=== PATIENT | female | born 1935 | race Caucasian/White ===

== ENCOUNTER → 2017-10-26 | Outpatient (CLI) | payer MEDICARE ==
[~2017-10-26] MED LIST: ASPI325 PO; ATEN25 PO; ATEN50 PO; ATOR40TA PO; Benadryl 50 mg50 MG PO; CALCAVITDA PO; CONEST.3 PO; CONEST.625 PO; DIPATR PO; ERGO400 PO; FEXPSEER PO; FISH1000 PO; FLAX PO; GLUCHON PO; HYDACE10 PO; IBUP200 PO; LEVFLO500 PO; MELO7.5 PO; MULVITMINF PO; Magnesium250 MG PO; Mobic15 MG PO; OMEP10ER PO; OXYACE5T PO; PANT40 PO; POTA10T PO; Pepcid40 MG PO; Prednisone10 MG PO; Prilosec Otc20 MG PO; RAMI2.5 PO; RAMI5 PO; RXONDA4ODT MM; SELENIUM200 MC1 PO; SERT25 PO; SIMV40 PO; Zofran8 MG PO
== END ==
LOC: LAB EV 12:19
DX: N39.0 Urinary tract infection, site not specified (principal)
CPT/HCPCS: 87077; 87086; 87186

== ENCOUNTER 2018-09-27 11:20 | Inpatient (IN) | payer MEDICARE ==
[~2018-09-27] VITALS: Ht 160 cm; Wt 57.8 kg
[~2018-09-27 11:20] MED LIST changes: +FISH OIL + D31 EACH PO
[2018-09-27 12:09] LABS: BASOPHILS ABSOLUTE AUTO 0.01 K/mm3 (0.00-0.23); BASOPHILS PERCENT AUTO 0 % (0-2); EOSINOPHILS PERCENT AUTO 0 % (0-6); Hematocrit 43.8 % (33.0-51.0); Hemoglobin 14.3 g/dL (11.5-16.0); IMMATURE GRAN ABSOLUTE AUTO 0.01 K/mm3 (0.00-0.10); IMMATURE GRAN PERCENT AUTO 0 % (0-1); LYMPHOCYTES ABSOLUTE AUTO 1.11 K/mm3 (0.84-5.20); LYMPHOCYTES PERCENT AUTO 21 % (21-46); MONOCYTES ABSOLUTE AUTO 0.81 K/mm3 (0.16-1.47); MONOCYTES PERCENT AUTO 15 % (4-13); Mean Corpuscular HGB 32.9 pg (26.0-34.0); Mean Corpuscular HGB Conc 32.6 g/dL (31.5-36.5); Mean Corpuscular Volume 101 fL (80-100); Mean Platelet Volume 11.3 fL (9.1-12.4); NEUTROPHILS ABSOLUTE AUTO 3.42 K/mm3 (1.96-9.15); NEUTROPHILS PERCENT AUTO 64 % (41-73); Platelet Count 210 K/mm3 (150-400); RDW Coefficient Variation 12.7 % (11.7-14.2); RDW Standard Deviation 47.3 fL (35.1-46.3); Red Blood Cell Count 4.34 M/mm3 (3.80-5.20); White Blood Cell Count 5.36 K/mm3 (4.00-11.30)
[2018-09-27 12:32] LABS: Albumin, Blood 3.4 g/dL (3.4-5.0); Bilirubin, Total 0.6 mg/dL (0.1-1.0); Bun/Creatinine Ratio 16.8 (12.0-20.0); Calcium, Blood 7.5 mg/dL (8.5-10.1); Creatinine, Blood 3.09 mg/dL (0.40-1.00); Globulin, Blood 3.5 g/dL (2.2-4.0); Potassium, Blood 3.7 mmol/L (3.5-5.5); Total Protein, Blood 6.9 g/dL (6.4-8.2)
[2018-09-27 14:09] LABS: Source, Urine Clean Catch
[2018-09-27 14:16] LABS: Bilirubin, Urine Neg (Neg); Glucose Qualitative, Urine Neg (Neg); Leukocyte Esterase, Urine 3+ (Neg); Nitrite, Urine Pos (Neg); Urobilinogen, Urine NORM (Normal)
[2018-09-27 14:46] LABS: Appearance, Urine Clear (Clear); Blood, Urine 5+ (Neg); Color, Urine Yellow (P-Yellow); Ketones, Urine Neg (Neg); Protein, Urine 3+ (Neg)
[2018-09-27 14:55] LABS: Bacteria Mod /hpf; Red Blood Cells, Urine 0-2 /hpf (0-2); Squamous Epithelial Cells Few /hpf (Few); White Blood Cells, Urine 0-2 /hpf (0-5)
--- NOTE | 2018-09-27 19:11 | NUR ---
SHIFT SUMMARY: PATIENT ADMIT FROM ED THIS SHIFT. PT A&O; CALM AND COOPERATIVE WITH CARE. NO C/O PAIN/NAUSEA SINCE ARRIVAL ON MEDICAL FLOOR. FULL ADEMIT COMPLETED. FLUID REHYDRATION CONTINUING. REPORT GIVEN TO ONCOMING RN.
[2018-09-27 23:54] LABS: Bilirubin, Urine Neg (Neg); Blood, Urine 5+ (Neg); Glucose Qualitative, Urine Neg (Neg); Ketones, Urine 1+ (Neg); Leukocyte Esterase, Urine 3+ (Neg); Nitrite, Urine Pos (Neg); Protein, Urine 2+ (Neg); Urobilinogen, Urine NORM (Normal)
[2018-09-28 00:05] LABS: Appearance, Urine Cloudy (Clear); Color, Urine Pale Yellow (P-Yellow)
[2018-09-28 00:06] LABS: Amorphous Light (0-Heavy); Bacteria Many /hpf; Squamous Epithelial Cells Few /hpf (Few)
--- NOTE | 2018-09-28 04:25 | NUR ---
SHIFT SUMMARY PT RESTING QUIETLY, WATCHING TV, DURING BS REPORT. IVF'S INFUSING. ADMITTED FOR KATYA, DEHYDRATION AND HYPOTENSION. PT TO ER WITH C/O N/V/D SINCE TUESDAY, WITH REPORT OF 8 LB WT LOSS. DENIED NEEDS AT THAT TIME, BUT LATER [facility] PT FOUND TO HAVE DIARRHEA REPORTED. C-DIFF CX ORDERED PER PROTOCOL AND SENT. LAB RESULT RETURNED NEG FOR C-DIFF. PT HAS RESTED QUIETLY FOR THE MOST PART, WAKING TO GO TO [facility] SEVERAL TIMES WITH DIARRHEA. PT SEEMS WEAK AND DECONDITIONED, BUT PLEASANT AND CO-OP WITH CARE. CALL LT IN REACH. ABLE TO MAKE NEEDS KNOWN.
[2018-09-28 06:30] LABS: Albumin, Blood 2.5 g/dL (3.4-5.0); Anion Gap 8 mmol/L (6-16); Blood Urea Nitrogen 29 mg/dL (8-24); Bun/Creatinine Ratio 22.5 (12.0-20.0); CO2, Blood 22 mmol/L (21-32); Calcium, Blood 7.1 mg/dL (8.5-10.1); Chloride, Blood 113 mmol/L (98-108); Creatinine, Blood 1.29 mg/dL (0.40-1.00); Glomerular Filtration Rate 42 (60-); Glucose, Blood 76 mg/dL (70-99); Phosphorus, Blood 2.1 mg/dL (2.5-4.9); Potassium, Blood 3.5 mmol/L (3.5-5.5); Sodium, Blood 143 mmol/L (136-145)
--- NOTE | 2018-09-28 10:27 | NUR ---
Spiritual care visit conducted. I entered patient's room and found her lying in bed on her side. I introduced myself and gave the purpose for my visit. Patient invited me to sit down. Patient was open and kind and talked freely about her loss of loved ones and about her family. Patient was admittedly discouraged by the fact that her sympoms were kidney related rather than an illness. I listened empathically, provided companionship, emotional support and prayer. Patient verbalized appreciation. Patient displayed evidence of restored mary, catharsis and stabilization.
--- NOTE | 2018-09-28 16:32 | NUR ---
Mrs. Vazquez appears frail and explained to me why she is hre in great detail. She states she is not used to being ill, but is hopeful she will begin to feel better soon. She tells me she has the strong support of friends and neighbors and expressed no concerns. We prayed together for healing. I will remain available.
--- NOTE | 2018-09-28 18:44 | NUR ---
NO ACUTE CHANGES NOTED THIS SHIFT. PT CONTINUES TO EXPERIENCE FREQUENT DIARRHEA. NO N/V. STOOL SPECIMEN SENT TO LAB, RESULTS PENDING. NO C/O OF PAIN TODAY. WILL CONTINUE TO MONITOR AND REPORT TO ONCOMING RN.
[2018-09-29 04:26] LABS: BASOPHILS ABSOLUTE AUTO 0.01 K/mm3 (0.00-0.23); BASOPHILS PERCENT AUTO 0 % (0-2); EOSINOPHILS ABSOLUTE AUTO 0.04 K/mm3 (0.00-0.68); EOSINOPHILS PERCENT AUTO 1 % (0-6); Hematocrit 33.8 % (33.0-51.0); Hemoglobin 10.8 g/dL (11.5-16.0); IMMATURE GRAN ABSOLUTE AUTO 0.01 K/mm3 (0.00-0.10); IMMATURE GRAN PERCENT AUTO 0 % (0-1); LYMPHOCYTES ABSOLUTE AUTO 0.95 K/mm3 (0.84-5.20); LYMPHOCYTES PERCENT AUTO 31 % (21-46); MONOCYTES ABSOLUTE AUTO 0.48 K/mm3 (0.16-1.47); MONOCYTES PERCENT AUTO 16 % (4-13); Mean Corpuscular Volume 103 fL (80-100); Mean Platelet Volume 10.2 fL (9.1-12.4); NEUTROPHILS ABSOLUTE AUTO 1.55 K/mm3 (1.96-9.15); NEUTROPHILS PERCENT AUTO 51 % (41-73); Platelet Count 157 K/mm3 (150-400); RDW Coefficient Variation 12.7 % (11.7-14.2); RDW Standard Deviation 48.2 fL (35.1-46.3); Red Blood Cell Count 3.27 M/mm3 (3.80-5.20); White Blood Cell Count 3.04 K/mm3 (4.00-11.30)
[2018-09-29 04:44] LABS: Albumin, Blood 2.4 g/dL (3.4-5.0); Anion Gap 4 mmol/L (6-16); Blood Urea Nitrogen 8 mg/dL (8-24); Bun/Creatinine Ratio 10.9 (12.0-20.0); CO2, Blood 26 mmol/L (21-32); Calcium, Blood 7.2 mg/dL (8.5-10.1); Chloride, Blood 115 mmol/L (98-108); Creatinine, Blood 0.74 mg/dL (0.40-1.00); Glomerular Filtration Rate >60 (60-); Glucose, Blood 99 mg/dL (70-99); Phosphorus, Blood 1.4 mg/dL (2.5-4.9); Potassium, Blood 3.5 mmol/L (3.5-5.5); Sodium, Blood 145 mmol/L (136-145)
--- NOTE | 2018-09-29 05:06 | NUR ---
BLOWER FEEDER DYED RAW STOCK SUMMARY NO ACUTE CHANGES THIS SHIFT. PT AAOX4 AND INDEPENDENT TO THE BATHROOM. PT DID NOT EAT MUCH OF HER DINNER BECAUSE SHE SAYS "EVERYTHING I EAT MAKES ME HAVE MORE DIARRHEA". PT DID HAVE ONE BM THIS AM WHICH SHE REPORTS IS MORE FORMED AND NO LONGER LOOSE. CONTINUED ON IV NS AND ABX. VSS, WILL CONTINUE TO MONITOR.
--- NOTE | 2018-09-29 19:40 | NUR ---
SUMMARY- PT A/O INDEPENDANT IN ROOM. HAD ONE SEMI FORMED STOOL THIS AM, AND 2 LOOSE AFTER THAT BEFORE 10AM. NO BM UNTIL 1800 HAD ANOTHER LOOSE STOOL. TOLERATING FOOD AND FLUIDS. HAD A SHOWER THIS PM. STARTED K-PHOS RIDER FOR LOW PHOS. REPORTED TO FELICIANO BURK.
[2018-09-30 05:33] LABS: Albumin, Blood 2.4 g/dL (3.4-5.0); Anion Gap 7 mmol/L (6-16); Blood Urea Nitrogen 4 mg/dL (8-24); Bun/Creatinine Ratio 6.5 (12.0-20.0); CO2, Blood 25 mmol/L (21-32); Calcium, Blood 7.6 mg/dL (8.5-10.1); Chloride, Blood 112 mmol/L (98-108); Creatinine, Blood 0.61 mg/dL (0.40-1.00); Glomerular Filtration Rate >60 (60-); Glucose, Blood 110 mg/dL (70-99); Phosphorus, Blood 2.5 mg/dL (2.5-4.9); Potassium, Blood 3.7 mmol/L (3.5-5.5); Sodium, Blood 144 mmol/L (136-145)
--- NOTE | 2018-09-30 06:25 | NUR ---
SHIFT SUMMARY PT IS AN 83 Y/O WOMAN, ADMITTED FOR KATYA AND DEHYDRATION. SHE IS A&O X 4, AND ABLE TO AMBULATE INDEPENDENTLY. SHE REPORTED MULTIPLE LOOSE BMS DURING THE NIGHT, BUT DENIED ANY NAUSEA OR VOMITING. NO REPORTS OF PAIN OR SHORTNESS OF BREATH. VITAL SIGNS STABLE. NO ACUTE CHANGES IN PT CONDITION NOTED DURING THE NIGHT. WILL CONTINUE TO MONITOR AND TREAT PER EMAR UNTIL HAND OFF TO DAY SHIFT.
[2018-09-30] MEDS ORDERED: ASPI81CH PO (11:47)
[2018-09-30] MEDS ORDERED: CIPR500 PO (11:47)
[2018-09-30] MEDS ORDERED: FAMO20 PO (11:47)
[2018-09-30] MEDS ORDERED: METR500 PO (11:48)
--- NOTE | 2018-09-30 12:45 | NUR ---
DISCHARGE INSTRUCTIONS COMPLETED AND DISCUSSED WITH PT EXPRESSING UNDERSTANDING. SCRIPTS FAXED TO [facility]. COLINDRES CURB VIA W/C.
== END 2018-09-30 12:45 | disposition home or self-care (01) | DRG 682 ==
LOC: ER 11:20 → MEDS 14:06
PROVIDERS: Emergency Medicine; Internal Medicine; ADMIT Internal Medicine Endocrinology, Diabetes & Metabolism
DX: N17.9 Acute kidney failure, unspecified (principal); R57.1 Hypovolemic shock; N39.0 Urinary tract infection, site not specified; K21.9 Gastro-esophageal reflux disease without esophagitis; K52.9 Noninfective gastroenteritis and colitis, unspecified; B96.1 Klebsiella pneumoniae [K. pneumoniae] as the cause of diseases classified elsewhere; E78.01 Familial hypercholesterolemia; Z86.73 Personal history of transient ischemic attack (TIA), and cerebral infarction without residual deficits; M81.0 Age-related osteoporosis without current pathological fracture; I95.9 Hypotension, unspecified; M54.5 Low back pain; G89.29 Other chronic pain; I10 Essential (primary) hypertension
CPT/HCPCS: 36415; 80053; 80069; 81001; 82550; 83605; 83690; 84484; 85025; 87015; 87045; 87046; 87077; 87086; 87177; 87186; 87205; 87209; 87493; 87899; 93005; 93010; 96360; 96361; 99285-25; J0744; J1650; J2405; J7030; J7040; J7060; J7120

== ENCOUNTER → 2019-07-16 | Outpatient (CLI) | payer MEDICARE ==
[~2019-07-16] MED LIST changes: +ASPI81CH PO; +CIPR500 PO; +FAMO20 PO; +METR500 PO
== END ==
LOC: LAB SHORT 11:30 → LAB EV 11:30
DX: N39.0 Urinary tract infection, site not specified (principal)
CPT/HCPCS: 87077; 87086; 87186